=== PATIENT | female | born 1945 | race Caucasian/White ===

== ENCOUNTER → 2017-03-21 | Outpatient (CLI) | payer MEDICARE, BC ==
--- NOTE | 2017-03-24 09:38 | MM ---
Reason for exam: screening (asymptomatic). Last mammogram was performed 1 year ago. History: Patient is postmenopausal and has history of ovarian cancer at age 39. Took estrogen for 20 years beginning at age 39. Physical Findings: A clinical breast exam by your physician is recommended on an annual basis and results should be correlated with mammographic findings. MG Screening Mammo w CAD Bilateral CC and MLO view(s) were taken. Prior study comparison: March 21, 2016, right breast MG 3d work up w/cad RT. March 15, 2016, bilateral MG screening mammo w CAD. The breast tissue is almost entirely fat. Finding: There are vascular calcifications in both breasts. There is no discrete abnormality. No significant changes in finding since March 21, 2016 and March 15, 2016. ASSESSMENT: Negative, BI-RAD 1 RECOMMENDATION: Routine screening mammogram of both breasts in 1 year.
== END | disposition home or self-care (01) ==
LOC: RADMAMWWP 13:40
PROVIDERS: ATTEND Family Medicine
DX: Z12.31 Encounter for screening mammogram for malignant neoplasm of breast (principal)

== ENCOUNTER → 2017-08-01 | Outpatient (CLI) | payer MEDICARE, BC ==
--- NOTE | 2017-08-04 12:01 | BD ---
EXAMINATION TYPE: MG DEXA axial skeleton. DATE OF EXAM: 08/01/2017 COMPARISON: NONE CLINICAL HISTORY: M84.80 OTHER DISORDER OF BONES Height: 60.3 Weight: 151 FRAX RISK QUESTIONS: Alcohol (3 or more units per day): NO Family History (Parent hip fracture): NO Glucocorticoids (More than 3mos): YES (Ex: prednisone, prednisolone, methylprednisolone, dexamethasone, and hydrocortisone). History of Fracture in Adulthood: NO Secondary Osteoporosis: NO 1. Type 1 Diabetes: NO 2. Hyperthyroidism: NO 3. Menopause before 45: YES 4. Malnutrition: NO 5. Chronic liver disease: NO Rheumatoid Arthritis: NO Current Tobacco Use: NO RISK FACTORS HISTORY OF: Family History of Osteoporosis: YES, HER MOTHER, Active: YES Diet low in dairy products/other sources of calcium: NO Postmenopausal woman: HYSTERECTOMY, AT AGE 39 Take estrogen and/or progesterone medications: TOOK THEM FROM 39 TO 63 YRS OLD How lon YRS Hyperparathyroidism: NO Adrenal Insufficiency: NO MEDICATIONS: Prednisone or other steroids: INHALER ON AND OFF FOR ALLERGIES How Long: FOR MANY YRS Thyroid Medications: YES, SYNTHROID 0.8 MCG How Long: SINCE 2004 Additional Medications: LEXAPRO, BP MEDS, ORAL DIABETIC MEDS, STATINS FOR CHOLESTEROL, VIT D AND CALC IUM WITH MULTIVITAMIN Additional History: DIABETES, HYPERTENSION, ANXIETY, OSTEOARTHRITIS EXAM MEASUREMENTS: Bone mineral densitometry was performed using the [employer] System. Bone mineral density as measured about the Lumbar spine is: ----- L1-L4(G/cm2): 1.310 T Score Values are as follows: ----- L1: -0.4 ----- L2: 0.7 ----- L3: 1.6 ----- L4: 2.0 ----- L1-L4: 1.1 Bone mineral density has: Increased 6.2% since study of: 11.16.2009 Bone mineral density about the R hip (g/cm2): 1.058 Bone mineral density about the L hip (g/cm2): 1.080 T Score values are as follows: -----R Neck: -0.6 -----L Neck: -0.3 -----R Total: 0.4 -----L Total: 0.6 Bone mineral density has: Decreased -7.6% since study of: 11.16.2009 FRAX%'S: THERE IS A 8.2% CHANCE OF A MAJOR OSTEOPOROTIC FX AND A 0.8% CHANCE OF HIP FX.....PROBABIL ITY IN 10 YRS TIME IMPRESSION: Normal (Values between +1 and -1 indicate normal bone mass). Consider repeating this study in 5 year s or sooner if there is some new clinical indication. FOR BOTH OF HER HIPS AND THE LUMBAR SPINE NOTE: T-SCORE=SD OF THE YOUNG ADULT MEAN.
== END | disposition home or self-care (01) ==
LOC: RADBDWWP 10:30
PROVIDERS: ATTEND Family Medicine
DX: M84.80 Other disorders of continuity of bone, unspecified site (principal)
CPT/HCPCS: 77080

== ENCOUNTER → 2018-05-29 | Outpatient (CLI) | payer MEDICARE, BC ==
--- NOTE | 2018-06-01 11:34 | MM ---
Reason for exam: screening (asymptomatic). Last mammogram was performed 1 year and 2 months ago. History: Patient is postmenopausal and has history of ovarian cancer at age 39. Took estrogen for 20 years beginning at age 39. Physical Findings: A clinical breast exam by your physician is recommended on an annual basis and results should be correlated with mammographic findings. MG Screening Mammo w CAD Bilateral CC and MLO view(s) were taken. Prior study comparison: March 21, 2017, bilateral MG screening mammo w CAD. March 21, 2016, right breast MG 3d work up w/cad RT. There are scattered fibroglandular densities. Benign appearing bilateral calcifications. No suspicious abnormality. No significant changes when compared with prior studies. ASSESSMENT: Benign, BI-RAD 2 RECOMMENDATION: Routine screening mammogram of both breasts in 1 year.
== END | disposition home or self-care (01) ==
LOC: RADMAMWWP 12:58
PROVIDERS: ATTEND Family Medicine
DX: Z12.31 Encounter for screening mammogram for malignant neoplasm of breast (principal)
CPT/HCPCS: 77067